=== PATIENT | male | born 1945 ===

== ENCOUNTER 2021-02-24 19:41 | Inpatient (IN) | payer MEDICARE ==
--- NOTE | 2021-02-24 20:15 | NUR ---
NEW ADMIT TO DR ROBLES FROM [facility] RELATED TO ALTERED MENTAL STATUS AND AGGRESSION WITH STAFF. RECEIVED WITH TRANSPORTERS AT HIS SIDE. CALM AND COOPERATIVE UPON ADMIT. SOCIAL WITH STAFF AND PEERS. ADMIT CONSENT RECEIVED VIA PHONE FROM MARLENE PEDERSON. CODE STATUS OF FULL CODE RECEIVED. SECURITY CODE OF 9624 GIVEN. NO SIGNS OF AGGRESSION AT THIS TIME. ORIENTED TO SELF ONLY. SITTING CALMLY IN HALLWAY SOCIALIZING WITH A PEER AT THIS TIME.
[2021-02-24] MEDS ORDERED: BAYER ASPIRIN325 MG PO (21:05)
[2021-02-24] MEDS ORDERED: BUMEX2 MG PO (21:06)
[2021-02-24] MEDS ORDERED: PLAVIX75 MG PO (21:06)
[2021-02-24] MEDS ORDERED: GLIPIZIDE5 MG PO (21:08)
[2021-02-24] MEDS ORDERED: HUMULIN R100 UNIT/1 SC (21:10)
[2021-02-24] MEDS ORDERED: KEPPRA500 MG PO (21:12)
[2021-02-24] MEDS ORDERED: MOBIC7.5 MG PO (21:13)
[2021-02-24] MEDS ORDERED: K-DUR20 MEQ PO (21:14)
[2021-02-24] MEDS ORDERED: OXYBUTYNIN CHLOR5 MG PO (21:14)
[2021-02-24] MEDS ORDERED: REMERON15 MG PO (21:15)
[2021-02-24] MEDS ORDERED: HYTRIN1 MG PO (21:16)
[2021-02-24] MEDS ORDERED: VITAMIN D325 MC1 PO (21:17)
[2021-02-24] MEDS ORDERED: ZOLOFT50 MG PO (21:18)
[2021-02-24 21:42] VITALS: BP 142/82
[2021-02-24 23:29] VITALS: BP 142/82; BMI 26.5
[2021-02-24 23:41] LABS: BILIRUBIN NEGATIVE (NEGATIVE); KETONE NEGATIVE (NEGATIVE); NITRITE NEGATIVE (NEGATIVE); UROBILINOGEN NORMAL mg/dL (< 2)
[2021-02-25 07:32] LABS: BASOPHILS 0.2 % (0-2); EOSINOPHILS 1.4 % (0-7); HEMATOCRIT 41.3 % (36.0-48.0); HEMOGLOBIN 13.6 g/dL (12-16); IMMATURE GRANULOCYTES 0.2 % (0-5); LYMPHOCYTE ABS# 1.61 10x3/uL (1.18-3.74); LYMPHOCYTES 24.2 % (15-50); MCH 28.4 pg (26.0-34.0); MCHC 32.9 g/dL (31.0-37.0); MCV 86.2 fL (80.0-100.0); MEAN PLATELET VOLUME 9.4 fL (7.4-10.4); MONOCYTES 7.5 % (2-11); NEUTROPHIL ABS# 4.42 10x3/uL (1.56-6.13); NEUTROPHILS 66.5 % (40-80); PLATELET COUNT 145 10x3/uL (130-400); RBC 4.79 10x6/uL (4.00-5.40); RDW 14.3 % (11.5-14.5); WBC 6.6 10x3/uL (4.8-10.8)
[2021-02-25 07:52] LABS: ALBUMIN 3.7 g/dL (3.4-5.0); ALKALINE PHOSPHATASE 78 U/L (30-120); ALT (SGPT) 28 U/L (10-68); BILIRUBIN - TOTAL 0.95 mg/dL (0.2-1.3); CALC OSMOLALITY 290 mosm/kg (275-300); CARBON DIOXIDE 33.7 mmol/L (21.0-32.0); CHLORIDE - SERUM 103 mmol/L (98-107); CHOL - HDL RATIO 1.8 ratio (2.3-4.1); CHOLESTEROL, TOTAL 137 mg/dL (0-200); GLUCOSE 144 mg/dL (74-106); HDL CHOLESTEROL 78 mg/dL (32-96); LDL CHOLESTEROL 50 mg/dL (0-100); LDL-HDL RATIO 0.6 ratio (1.5-3.5); POTASSIUM - SERUM 3.4 mmol/L (3.5-5.1); PROTEIN - SERUM 7.3 g/dL (6.4-8.2); SODIUM 143 mmol/L (136-145); THYROID STIMULATING HORMONE 0.95 uIU/mL (0.36-3.74); TRIGLYCERIDE 46 mg/dL (30-200); UREA NITROGEN 21 mg/dL (7-18); eGFR NON AFRICAN AMERICAN 57 mL/min (90-120)
[2021-02-25 09:41] VITALS: Wt 71.6 kg
[2021-02-25 14:19] VITALS: BP 146/72
--- NOTE | 2021-02-25 15:16 | NUR ---
PT SITTING AND TALKING WITH STAFF AT THIS TIME. PT IS CALM AND COOPERATIVE. TALKATIVE AND LABILE. SOME SEXUAL INAPPOPRIATE BEHAVIOR NOTED. REDIRECT AND REORIENT BEHAVIOR NEEDED. NO DELUISIONAL BEHAVIOR NOTED. PT CAN MAKE NEEDS KNOWN. COMPLIANT WITH VITALS AND ASSESSMENTS. PT IN W/C WITH ALARM IN PLACE. PT REPOSITION SELF. BED AND CHAIR ALARM IN PLACE AND ACTIVE. WILL CONT PLAN OF CARE.
--- NOTE | 2021-02-25 18:23 | NUR ---
PT AGGRESSIVE WITH STAFF WHEN STAFF ATTEMPTED ASSIST PT INTO OTHER ROOM. PT BECAME COMBATIVE STATING YOU ARENT TAKING ME ANYWHERE. WHY ARE YOU TRYING TO TAKE ME?" STAFF ATTEMPTED TO REDIRECT. PT DID NOT VERBALIZIE UNDERSTANDING. ATIVAN 0.5 MG AND HALDOL 2 MG IM GIVEN PER DR. ROBLES ORDER. WILL CONT TO MONITOR, FOLLOW FALL PRECAUTIONS. WILL REMONITOR FOR EFFECTIVENESS.
--- NOTE | 2021-02-25 19:58 | NUR ---
RECEIVED IN BEDROOM. RESTING IN BED WITH EYES OPEN. CALM AND COOPERATIVE WITH CARE AND ASSESSMENT. NO SIGNS OF AGGRESSION. REDIRECT AND REORIENT NEEDED. CRITICAL GLUCOSE OF 416. DR IVERSON CALLED. ORDER TO START SLIDING SCALE. NO OTHER ORDERS RECEIVED. STAT LAB GLUCOSE ORDERED PER HOSPITAL POLICY. RESTING IN BED EYES CLOSED. CONTINUE PLAN OF CARE.
[2021-02-25 21:50] VITALS: BP 138/77
[2021-02-26 07:15] LABS: RAPID PLASMA REAGIN Non Reactive (Non Reactive)
--- NOTE | 2021-02-26 08:00 | NUR ---
REC'D PT IN HALLWAY SITTING IN W/C. AWAKE AND ALERT TO PERSON ONLY. ASSESSMENT COMPLETED. PRESCRIBED MEDICATIONS PROVIDED ORDERED. MED COMPLIANT. PT IS ARGUMENTIVE WITH STAFF. PT CAN BECOME VERY AGGRESSIVE WITH STAFF AT TIMES. REDIRECT AND REORIENT NEEDED. FALL PRECAUTIONS IN PLACE. WILL CPOC.
[2021-02-26 09:22] VITALS: BP 150/88
--- NOTE | 2021-02-26 14:39 | NUR ---
Nutrition Follow-up: Diet: Diabetic + Glucerna TID PO intake: no meals recorded since admit Last BM: 02/25/21 x 2 Wt: 169# (02/25/21) Meds noted: bumex, glipizide, SSI, K-dur Labs noted: POC Glu 139(H) Recommend continue current diet and oral nutriiton supplements. WIll continue to monitor PO intake and wt trend. RD will follow-up 03/03/21.
--- NOTE | 2021-02-26 15:03 | CN ---
PATIENT NAME:PRIMITIVO DURAN MEDICAL RECORD: [id number] : 45 LOCATION:[id number] ADMIT DATE: 02/24/21 ACCOUNT: [id number] CONSULTING PHYSICIAN: DAVID ROBLES MD REFERRING PHYSICIAN: DAVID ROBLES MD DATE OF CONSULTATION: 02/25/2021 IDENTIFYING DATA: The patient is 75 years old and he is admitted to the hospital on a voluntary basis. CHIEF COMPLAINT: None. HISTORY OF PRESENT ILLNESS: The patient was referred to us by a group home in [place]. They report he has been aggressive and delusional. The patient himself is severely impaired cognitively and has no recollection of these events. In fact, he is not providing anything I would consider useful information and everything with few exceptions contained in this report is in need of corroboration from other sources. The patient is cooperative and trying to be helpful, but I do not think the reliability of what he is telling me is valid. PAST MEDICAL HISTORY: Significant for hypertension and diabetes. PAST PSYCHIATRIC HISTORY: Denied by the patient. FAMILY HISTORY: Unknown. ALLERGIES: No known drug allergies. CURRENT MEDICATIONS: Plavix, Hytrin, aspirin, Mobic, Remeron, Zoloft, Keppra, Bumex, potassium, glipizide, insulin and vitamin D. SOCIAL HISTORY: The patient is . He denies a history of drug or alcohol abuse. He denies legal entanglements. MENTAL STATUS EXAMINATION: The patient is awake, alert and oriented to person only. His mood is depressed. His affect is constricted. Thought processes are circumstantial. Memory, concentration, and abstraction abilities are severely impaired and he denies that he would seek to harm himself or others as well as active psychotic symptoms. ASSETS: Supportive family members. LIABILITIES: Limited insight. 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 AXIS II: None. AXIS III: Hypertension, diabetes. AXIS IV: Moderate stressors. AXIS V: Global Assessment of functioning is 30. PLAN: At this time, the patient is admitted to the hospital secondary to aggressive behaviors associated with a dementing illness. He will be treated with both mood stabilizing and memory enhancing medications. His long-term CONSULT REPORT [id number] PRIMITIVO DURAN prognosis is guarded. TRANSINT:[id number] Voice Confirmation ID: [id number] DOCUMENT ID: [id number] DAVID ROBLES MD at 1503 CC: [id number] DICTATION DATE: 02/25/21 171 HANDBAG DESIGNER: 02/25/21 1725 ADM IN [place] [id number] [place] [id number]
[2021-02-26 20:00] VITALS: BP 127/81
--- NOTE | 2021-02-26 23:10 | NUR ---
PT IS ALERT AND ORIENTED TO SELF ONLY. WHEN ASKED WHERE HE IS HE STATED "HERE WITH YOU, I DONT KNOW." RECEIVED OUTSIDE THE NURSES STATION IN A WHEELCHAIR SOCIALIZING WITH PEERS. CALM AND COOPERATIVE WITH STAFF. COMPLIANT WITH ALL MEDICATIONS. EASY TO REDIRECT. UNSTEADY WHEN AMBULATING. MONITOR FOR SAFETY.
--- NOTE | 2021-02-27 03:21 | NUR ---
PT RESTLESS AT TIMES, RELATES THAT HE NEEDS TO GO TO THE POLICE STATION TOMORROW BUT IS UNABLE TO TELL ME WHY. MONITOR FOR SAFETY.
[2021-02-27 09:58] VITALS: BP 135/72
--- NOTE | 2021-02-27 11:38 | PN ---
PATIENT:PRIMITIVO DURAN MEDICAL RECORD: [id number] LOCATION:[facility] ADMISSION DATE: 02/24/21 PROGRESS NOTE DATE OF SERVICE: 02/26/2021 SUBJECTIVE: The patient's case was discussed with staff. He has no new complaint. OBJECTIVE: The patient has been disorganized and was significantly agitated last night, but he is better today. In fairness, he is a new admission and there was another patient that was very much out of control and I believe from the description that I heard that the other patient was actually escalating him. ASSESSMENT: Dementia. PLAN: The patient will be maintained on current medicines, which I have reviewed. His long-term prognosis is guarded. TRANSINT:[id number] Voice Confirmation ID: [id number] DOCUMENT ID: [id number] DAVID ROBLES MD at 1138 CC: [id number] DICTATION DATE: 02/26/21 1520 RAW HIDE TRIMMER: 02/26/21 1702 ADM IN [place] [id number] [place] [address]
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
--- NOTE | 2021-02-27 15:49 | NUR ---
PT CALM AND COOPERATIVE. PRN EFFECTIVE.
--- NOTE | 2021-02-27 16:14 | NUR ---
PT SITTING IN DAYAREA WITH STAFF SOCIALZING. PT IS CALM AND COOPERATIVE. CONFUSION NOTED. ALERT TO SELF ONLY. REDIRECT AND REORIENT NEEDED. PT CAN MAKE SOME NEEDS KNOWN. REQUIRES SOME ASSISTANCE WITH ADLS. CAN TRANSFER SELF. NO AGRESSION NOTED. PT WAS TEARFUL EARLIER WHEN ANOTHER PT WAS UPSET AND CRYING. ATIVAN 0.5 MG PO FOR ANXIETY. PT CAN BE RESTLESS AT TIMES. PT IS COMPLIANT WITH MEDS, VITALS AND ASSESSMENTS. CHAIR AND BED ALARM IN PLACE AND ACTIVE.
[2021-02-27 20:00] VITALS: BP 147/93
--- NOTE | 2021-02-27 20:42 | NUR ---
RECEIVED PATIENT IN HIS ROOM, PLEASANT, CONFUSED, COMPLIANT WITH MEDS, THEN HE GOT UP AND ROLLED HIMSELF AROUND IN THE WHEELCHAIR, SEEM TO BE EXIT SEEKING. NO AGGRESSION NOTED. WILL FOLLOW POC
--- NOTE | 2021-02-27 23:38 | NUR ---
PATIENT WAS GIVEN HALDOL AND ATIVAN IM @ 2245 FOR AGGRESSION TOWARD STAFF AND BEING HARD TO REDIRECT. PRN WAS EFFECTIVE.
[2021-02-28 08:30] VITALS: BP 129/87
[2021-02-28 09:27] VITALS: BP 129/87
--- NOTE | 2021-02-28 10:15 | NUR ---
PT SITTING IN W/C IN DAYAREA AT THIS TIME. PT IS CALM AND COOPERATIVE WITH CARE AT TIMES. ALERT TO SELF ONLY. CONFUSION NOTED. PT CAN BE DIFFCULT TO REDIRECT AT TIMES. PT REQUIRES SOME ASSISTANCE WITH ADLS. CAN TRANSFER SELF. CAN NOT MAKE NEEDS KNOWN. ENCOURAGE TOILETING Q 2 HRS AND PRN. REDIRECT AND REORIENT NEEDED. COMPLIANT WITH MEDS, VITALS AND ASSESSMENTS. CHAIR AND BED ALARM IN PLACE AND ACTIVE. WILL CONT PLAN OF CARE.
[2021-02-28 20:00] VITALS: BP 119/77
--- NOTE | 2021-02-28 20:02 | NUR ---
PT IS ALERT AND ORIENTED TO SELF ONLY. POOR INSIGHT INTO HIS SITUATION. RECEIVED IN A WHEELCHAIR IN THE HALLWAY OUTSIDE THE NURSES STATION. CALM AND COOPERATIVE WITH STAFF. COMPLIANT WITH ALL MEDICATIONS. EASY TO REDIRECT. MONITOR FOR SAFETY.
[2021-03-01 08:00] VITALS: BP 134/78
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
[2021-03-01 20:00] VITALS: BP 138/63
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
[2021-03-02 08:00] VITALS: BP 142/71
--- NOTE | 2021-03-02 08:00 | NUR ---
REC'D PT IN HALLWAY SITTING IN W/C BY THE NURSES STATION. ASSESSMENT COMPLETED AT THIS TIME. AWAKE AND ALERT TO PERSON ONLY. PRESCRIBED MEDS PROVIDED ORDERED. MED COMPLIANT. PT IS VERY CONFUSED AND HAS LITTLE INSIGHT INTO HIS SITUATION. PT CAN BECOME AGGRESSIVE WITH STAFF AT TIMES UPON REDIRECTION. PT HAS BEEN SEXUALLY INAPPROPRIATE WITH STAFF AT TIMES. REDIRECT AND REORIENT NEEDED, FALL PRECAUTIONS IN PLACE FOR SAFETY. WILL CPOC.
--- NOTE | 2021-03-02 17:25 | NUR ---
PT EXIT SEEKING AT THIS TIME. PT AT DOUBLE DOORS ATTEMPTING TO LEAVE UNIT. PT REDIRECTED PER STAFF. UPON REDIRECTION PT PUT SELF IN THE FLOOR AND REFUSED TO GET UP AT THIS TIME. PT REFUSED BLOOD SUGAR AND TRAY AT THIS AT THIS TIME. HOWEVER ABOUT 40 MINUTES LATER PT ATE 100% OF DINNER. WILL CPOC.
--- NOTE | 2021-03-02 19:57 | NUR ---
RECEIVED IN BEDROOM. RESTING IN BED WITH EYES OPEN. EXITS BED WITHOUT ASSIST. IVETT ALARM SOUNDING. CALM AND CCOPERATIVE WITH CARE AND ASSESSMENT. NO SIGNS OF AGGRESSION. REDIRECT AND REORIENT NEEDED. CONTINUES TO REST IN BED WITH EYES OPEN. CONTINUE PLAN OF CARE.
[2021-03-02 21:12] VITALS: BP 131/79
[2021-03-03 08:00] VITALS: BP 142/91
--- NOTE | 2021-03-03 09:15 | NUR ---
PATIENT AGGRESSIVE AND AGITATED. HITTING, BITING, SCRATCHING STAFF. UNABLE TO RE-DIRECT.
--- NOTE | 2021-03-03 09:19 | NUR ---
PATIENT CONTINUES TO EXPERIENCE ANXIETY AND AGGRESSION TOWARD STAFF. ATIVAN 0.5 MG AND HALDOL 2 MG ADMIN IM PER ORDERS. NITHYA WELL.
--- NOTE | 2021-03-03 10:48 | NUR ---
Nutrition Follow-up: Diet: Diabetic + Glucerna TID PO intake: ~87% average x last 9 meals Last BM: 03/03/21 Wt: 168# (03/02/21); Admit Wt: 169# (02/24/21) Meds noted: bumex, glipizide, SSI, kdur Labs noted: POC Glu 143(H) Recommend continue current diet. RD will re-assess 03/05/21.
--- NOTE | 2021-03-03 11:04 | NUR ---
PATIENT CHEWED MEDS AT MORNING MED PASS AND SPIT SOME OUT.
--- NOTE | 2021-03-03 15:16 | PN ---
PATIENT:PRIMITIVO DURAN MEDICAL RECORD: [id number] LOCATION:[facility] ADMISSION DATE: 02/24/21 PROGRESS NOTE DATE OF SERVICE: 02/27/2021 SUBJECTIVE: The patient's case was discussed with staff. He has no new complaint. OBJECTIVE: The patient denies intent to harm himself or others. He is participating in treatment reasonably well. He did have some agitation recently, but it has not risen today to the level of needing p.r.n. medications. I would not interpret this as an improvement in his underlying condition, but rather I would attribute it to the supportive nature of his surroundings with someone constantly available to guide and redirect him. There would not be this advantage in a penitentiary. TRANSINT:[id number] Voice Confirmation ID: [id number] DOCUMENT ID: [id number] DAVID ROBLES MD at 1516 CC: [id number] DICTATION DATE: 02/27/21 1626 PROPERTY UNDERWRITER: 02/27/21 1803 ADM IN [facility] [address] [place] [address]
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
--- NOTE | 2021-03-03 20:49 | NUR ---
RECEIVED IN DAYROOM. COMABTIVE WITH STAFF. MOVED TO NURSES STAION FOR SAFETY. PATIENT CURSING STAFF. AGITATED. CALMED AFTER GIVEN PRN.REDIRECT AND REORIENT NEEDED. RESTING QUIETLY IN BED WITH EYES CLOSED AT THIS TIME. CONTINUE PLAN OF CARE.
[2021-03-03 20:59] VITALS: BP 130/73
[2021-03-04 08:00] VITALS: BP 146/69
--- NOTE | 2021-03-04 15:33 | NUR ---
RECEIVED THIS AM SITTING IN WHEELCHAIR IN HALLWAY AT NURSES STATION.IS ORIENTED TO SELF ONLY.COMPLIANT WITH MEDS.IS DIFFICULT TO REDIRECT AT TIMES.HAS BANDAID TO FOREHEAD,CLEAN AND DRY.NO AGGRESSION OBSERVED TODAY.WILL CONTINUE WITH CURRENT PLAN OF CARE,MONITOR FOR CHANGES AND SAFETY.
--- NOTE | 2021-03-04 15:49 | PN ---
PATIENT:PRIMITIVO DURAN MEDICAL RECORD: [id number] LOCATION:[facility]112 ADMISSION DATE: 02/24/21 PROGRESS NOTE DATE OF SERVICE: 03/03/2021 SUBJECTIVE: The patient's case was discussed with staff. He has no new complaint. OBJECTIVE: The patient is eating well, but he is very disorganized and delusional. He has been aggressive with staff in a very threatening way and required p.r.n. medication today. This weekend, he again engaged in a great deal of attention seeking help rejecting behavior and he has also been vulgar with numerous profane comments and requests being made to women. ASSESSMENT: Vascular dementia. PLAN: I am going to treat the patient more aggressively with antipsychotic medication and will include more significant p.r.n. medication since he is actually quite strong and a potential danger to the nursing staff and other patients. TRANSINT:[id number] Voice Confirmation ID: [id number] DOCUMENT ID: [id number] DAVID ROBLES MD at 1549 CC: [id number] DICTATION DATE: 03/03/21 1639 LUBRICATING ENGINEER: 03/03/21 2300 ADM IN [facility] [address] [place] [address]
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
--- NOTE | 2021-03-04 20:23 | NUR ---
RECEIVED IN DAYROOM. SITTING AT THE TABLE WITH PEERS. CALM AND COOPERATIVE WITH CARE AND ASSESSMENT. CONFUSED. NO SIGNS OF AGGRESSION. REDIRECT AND REORIENT NEEDED. CONTINUES TO SIT CALMLY AT THE DINING TABLE. CONTINUE PLAN OF CARE.
[2021-03-04 20:30] VITALS: BP 112/73
[2021-03-05 08:00] VITALS: BP 131/74
--- NOTE | 2021-03-05 10:10 | NUR ---
Nutrition Re-Assessment Diet: Diabetic + Glucerna TID PO intake: ~86% average x last 9 meals Last BM: 03/04/21 Wt: 168# (03/02/21); Admit Wt: 169# (02/24/21) Meds noted: bumex, glipizide, SSI, kdur Labs noted: POG Glu 191(H) Estimated nutrition needs: [id number] marsha (20-25 Act), 62-77gms protein (0.8-1), 1925-2300mL fluid (or per MD) Nutrition diagnosis: Altered nutrition related lab values r/t DM dx AEB elevated blood glucose. Nutrition goals: -PO intake =/>75% meals -Stable weight -Blood glucose WNL Recommendations/Interventions: -Recommend continue current diet and oral nutrition supplements. Will continue to honor food preferences within diet restrictions. -RD will follow-up within 7 days.
--- NOTE | 2021-03-05 13:06 | NUR ---
STAFF CALLED PT WAS CHOKING AT THIS TIME. 2X NURSE. PT WAS ALERT AND SPEAKING TO STAFF. VOMIT NOTED WITH CHUNKS OF FOOD. PT WAS DRINKING THIN TEA AT THE TIME. T: 98.6 ORAL, BILATERAL LUNG SOUNDS DIMINISHED. NURSE NOTIFIED DR. IVERSON. NEW ORDER: SPEECH THERAPY AND STAT CHEST X-RAY. ORDERS IN COMPUTER. PT REDRESSED AND CLEANED AT THIS TIME.
--- NOTE | 2021-03-05 17:10 | NUR ---
PT SITTING IN CHAIR AT THIS TIME. CONFUSION NOTED. REDIRECT AND REORIENT NEEDED. PT IS ALERT TO PERSON ONLY. REDIRECT AND REORIENT NEEDED. RESTLESS AT TIMES. PT IS SEXUAL INAPPOPRIATE AT TIMES. REDIRECT NEEDED. LACKS INSIGHT TO SITUATION. CAN NOT MAKE NEEDS KNOWN. COOPERATIVE WITH MEDS, VITALS AND ASSESSMENTS. PT COOPERATIVE WITH FSBS. REQUIRES 2X ASSISTANCE WITH ADLS. CHAIR AND BED ALARM IN PLACE AND ACTIVE. WILL CONT PLAN OF CARE.
--- NOTE | 2021-03-05 18:04 | NUR ---
Rec'd patient this am up in a reclining w/c. He is med compliant and takes meds whole. He is A/O times 2 to person and situation. He became aggressive and combative earliar with staff and the other patients and was lifting his voice at them. He was becoming increasingly combative. He is restless. He has been cooperative with this nurse. He was not being able to be directable and per MD orders rec'd Haldol and Ativan IM given.
[2021-03-05 20:00] VITALS: BP 137/83
--- NOTE | 2021-03-05 23:16 | NUR ---
RECEIVED PATIENT IN [facility] IN [facility], CALM, HE SPEAKS ABOUT RANDOM THINGS AND IT IS HARD TO UNDERSTAND HIM DUE TO HIS CONFUSION AND THE LANGUAGE BARRIER. COMPLIANT WITH MEDS. WILL FOLLOW POC
[2021-03-06 08:00] VITALS: BP 146/90
--- NOTE | 2021-03-06 11:16 | PN ---
PATIENT:PRIMITIVO DURAN MEDICAL RECORD: [id number] LOCATION:RACHEL Gallardo ADMISSION DATE: 02/24/21 PROGRESS NOTE DATE OF SERVICE: 03/04/2021 SUBJECTIVE: The patient's case was discussed with staff. He has no new complaint. OBJECTIVE: The patient denies intent to harm himself or others. He is calmer today, but as documented yesterday, he was extremely violent in a premedicated and predatory way. ASSESSMENT: Vascular dementia. PLAN: The patient will be maintained on current medicines, but I am going to increase the dose of his gabapentin. He will be monitored for clinical changes associated with its use. TRANSINT:[id number] Voice Confirmation ID: [id number] DOCUMENT ID: [id number] DAVID ROBLES MD at 1116 CC: [id number] DICTATION DATE: 03/04/21 1653 CABIN SERVICE AGENT: 03/04/21 2329 ADM IN [place] [id number] [place] [id number]
--- NOTE | 2021-03-06 11:16 | EC ---
PATIENT:PRIMITIVO DURAN DATE OF SERVICE: 02/24/21 SEX: M MEDICAL RECORD: [id number] DATE OF : 45 LOCATION:[facility] TorresJose AGE OF PATIENT: 75 ADMISSION DATE: 02/24/21 REFERRING PHYSICIAN: INTERPRETING PHYSICIAN: DAVID ROBLES MD ECHOCARDIOGRAM REPORT ECHO CHARGES Date: CLINICAL DIAGNOSIS: ECHOCARDIOGRAPHIC MEASUREMENTS (adult normal given) AC root (d.<3.7cm) cm LV Septum d (<1.2 cm> cm Valve Excursion cm LV Septum (systole) cm Left Atria (s.<4.0cm> cm LVPW d(<1.2cm) cm RV (d.<2.3cm) cm LVPW (sytole) cm LV diastole(<5.6CM) cm MV E-F(>70mm/sec) cm LV systole cm LVOT Diameter cm MV exc.(>10mm) cm Est.ejection fraction (50-75%) % DOPPLER: LVIT cm/sec A cm/sec E cm/sec LA cm/sec RVSP mmHg LVOT cm/sec AOP1/2T m/s Asc. Ao cm/sec RVOT cm/sec RA cm/sec PA cm/sec AV Gradient Peak mmHg AV Mean mmHg AV Area cm MV Gradient Peak mmHg MV Mean mmHg MV Area cm COMMENTS: Bag Worker: Expense Analyst: LUNA# Pericardial Effusion DATE OF SERVICE: 03/05/2021 SUBJECTIVE: The patient's case was discussed with staff. He has no new complaint. OBJECTIVE: The patient is confused and easily agitated. He has very poor insight about his situation and denies that he would seek to harm himself or others. ASSESSMENT: Dementia. ECHOCARDIOGRAM REPORT [id number] PRIMITIVO DURAN PLAN: The patient will be treated with a low dose of Klonopin to address his agitation. He will be monitored for clinical changes associated with its use. TRANSINT:[id number] Voice Confirmation ID: [id number] DOCUMENT ID: [id number] DAVID ROBLES MD at 1116 CC: [id number] DICTATION DATE: 03/05/21 1643 PARKING SUPERVISOR: 03/06/21 0037 ADM IN [address], [place] [address]
--- NOTE | 2021-03-06 16:56 | NUR ---
pt sitting in gerichair socializing with pt at this time. pt is calm and cooperative. pt is confused. alert to self only. redirect and reorient as needed. no aggression noted at this time. pt requires 2x assistance with ADLs. total assist. sexual inappopriate at times. redirect. bed and chair alarm in place and active. will cont plan of care.
[2021-03-06 20:00] VITALS: BP 163/91
--- NOTE | 2021-03-07 00:37 | NUR ---
B) Patient is alert and oriented to self, grabbing at other patients as they pass by his chair, aggression with redirection from staff, trying to hit staff I) Administered scheduled medications as ordered, redirected as needed, PRN Ativan 0.5 mg and haldol 2 mg given IM for aggression with staff, R) Medication compliant, sleeping now quietly in his bed, P) Continue plan of care.
[2021-03-07 08:00] VITALS: BP 140/72
--- NOTE | 2021-03-07 10:30 | NUR ---
PT DAUGHTER CALLED AT THIS TIME. PASSCODE GIVEN. SHE INQUIRED ABOUT HOW THE PT WAS DOING AT THIS TIME AND SHE WANTED TO KNOW IF SHE COULD CALL THIS AFTERNOON. PT DID NOT WANT TO SPEAK WITH HER EARLIER THIS WEEK. NURSE GAVE UPDATE ON HOW HE WAS DOING. PT WAS IN A GOOD MOOD THIS SHIFT BUT PT DID NEED MEDICATIONS ON PREVIOUS SHIFT DUE TO AGGRESSIVE BEHAVIOR. SHE STATED THAT THIS WAS NOT HER DAD. HE DIDNT NOT WANT TO TALK TO HER AND HE HASN'T BEEN DOING WELL. SHE INQUIRED ABOUT VISITATION TIMES. NURSE EDUCATED ON VISITATION TIMES. SHE STATED IF SHE WAS GOING TO VISIT THEN SHE CALL FOR DIRECTIONS. SHE THANKED NURSE.
--- NOTE | 2021-03-07 15:13 | NUR ---
pt sitting in chair rambling and reaching for staff. confused. can be aggressive with redirection. very anxious and restless. alert to self only. lacks insight to situation. sexual inappopriate behavior noted. redirected. compliant with meds, vitals and assessments. pt can not make needs known. pericare q 2hr and prn. will cont plan of care.
--- NOTE | 2021-03-07 16:44 | NUR ---
NURSE REPORTED TO DR. IVERSON THAT PT LUNG SOUNDS WERE DIFFERENT AND PT BEING MORE CONFUSED AND INCREASED BLOOD SUGARS. NEW ORDER FOR: CHEST X-RAY, URINE SAMPLE AND CBC. WILL FOLLOW UP RESULTS WITH DR. IVERSON. BLOOD DRAWN AT THIS TIME PER LAB.
[2021-03-07 16:52] LABS: BASOPHILS 0.3 % (0-2); HEMATOCRIT 43.2 % (42.0-54.0); HEMOGLOBIN 14.3 g/dL (13.5-17.5); IMMATURE GRANULOCYTES 0.2 % (0-5); LYMPHOCYTE ABS# 1.61 10x3/uL (1.32-3.57); LYMPHOCYTES 27.4 % (15-50); MCH 28.9 pg (26.0-34.0); MCHC 33.1 g/dL (31.0-37.0); MCV 87.3 fL (80.0-100.0); MEAN PLATELET VOLUME 9.8 fL (7.4-10.4); NEUTROPHIL ABS# 3.64 10x3/uL (1.78-5.38); NEUTROPHILS 62.1 % (40-80); PLATELET COUNT 162 10x3/uL (130-400); RBC 4.95 10x6/uL (4.20-6.10); RDW 14.6 % (11.5-14.5); WBC 5.9 10x3/uL (4.8-10.8)
--- NOTE | 2021-03-07 18:14 | NUR ---
PT DAUGHTER CALLED TO SPEAK WITH PT AT THIS TIME. PASSCODE GIVEN. CONVERSION TOLERATED WELL.
--- NOTE | 2021-03-07 18:15 | NUR ---
X-RAY HERE AT THIS TIME. PT TOLERATED WELL. PT WAS CALM AND COOPERATIVE WITH STAFF.
[2021-03-07 20:00] VITALS: BP 145/80
--- NOTE | 2021-03-07 21:20 | NUR ---
PT IS ALERT AND ORIENTED TO SELF ONLY. RECEIVED IN BED ATTENDING TO VISUAL HALLUCINATIONS OF MEN IN HIS ROOM. HE STATES "WATCH YOUR BACK THOSE MEN ARE COMING CLOSER." ATTEMPT TO REDIRECT UNSUCCESSFUL. NO AGGRESSION NOTED. RESTLESS AND ATTEMPTS TO GET OUT OF BED WITHOUT ASSIST. VERY UNSTEADY ON HIS FEET. COMPLIANT WITH ALL MEDICATIONS. RESISTANT TO REDIRECTION AT TIMES. MONITOR FOR SAFETY.
[2021-03-08 08:58] VITALS: BP 114/88
--- NOTE | 2021-03-08 11:02 | NUR ---
PT IN ROOM AT THIS TIME. PT IS RESTLESS. CONFUSION NOTED. ALERT TO SELF ONLY. REDIRECT AND REORIENT NEEDED. PT NOT SEEING UNSEEN THINGS. PT CONTS TO ATTEMPT TO STAND. PT REQUIRES CONSTANT REDIRECTION. CONTS WITH WORD SALAD. CAN NOT MAKE NEEDS KNOWN. COMPLIANT WITH MEDS, VITALS AND ASSESSMENTS. BED AND CHAIR ALARM IN PLACE AND ACTIVE. WILL CONT OF CARE.
--- NOTE | 2021-03-08 17:38 | NUR ---
DR. IVERSON CALLED SHE REVIEWED THE CHEST X-RAY RESULTS FROM 03/07/21 AND VITALS SIGNS ARE NORMAL. NEW ORDER FOR INCENTIVE SPIROMETER 4X IN A DAY. WILL PASS TO NEXT SHIFT WELL.
--- NOTE | 2021-03-08 17:39 | NUR ---
PT DAUGHTER CAME TO VISIT AT THIS TIME. SHE WANTED TO KNOW HOW HE WAS DOING AND WHY HE WAS SLEEPY AT THIS TIME. NURSE WENT OVER REASONS TO WHY. HE WAS COMBATIVE WITH STAFF ON THE ACTIVITY SPECIALIST WELL. THIS IS THE MEDICATION THAT IS PER NEEDED THAT MAKE HIM SLEEPY. WE DONT USE THOSE MEDICATIONS ROUTINE SO BEFORE HE GOES BACK TO THE LONG-TERM HE CAN NOT HAVE THOSE MEDICATIONS. 3 DAYS AND 3 NIGHTS HE CAN NOT HAVE THOSE MEDICATIONS. SHE VOICED UNDERSTANDING AND ASKED IF IT WAS DISEASE PROGRESSION AND HOW LONG IT WOULD BE BEFORE THEY . NURSE STATED DISEASE PROGRESSION IS DIFFERENT WITH EVERY PATIENT AND NURSE COULD NOT ANSWER THAT QUESTION. SHE VERBALIZIED UNDERSTANDING BUT DID NOT UNDERSTAND HOW IT COULD HAPPEN SO QUICKLY. NURSE STATED DISEASE PROGRESSION WAS DIFFERENT FOR EVERYONE. WE DID OBTAIN LABS AND CHEST X-RAY SO MONITOR IF ANYTHING HAPPENS. SHE DID NOT UNDERSTAND IF ITS NOTHING WRONG WITH HIM PHYSICALLY THEN WHAT WAS WRONG?" NURSE STATED IT COULD BE DISEASE PROGRESSION. HE STILL HAVE THE DESIRE TO EAT AND DRINK. SHE STATED SHE WOULD COME SEE HIM NEXT WEEKEND BUT THAT HER MOTHER ISNT DOING WELL EITHER SO SHE IS HAVING A HARD TIME. NURSE VERBALIZIED UNDERSTANDING. SHE THANKED NURSE FOR ALL THE HELP.
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
[2021-03-08 21:23] VITALS: BP 154/86
--- NOTE | 2021-03-08 23:03 | NUR ---
PT IS ALERT AND ORIENTED TO SELF ONLY. POOR INSIGHT INTO HIS SITUATION. HE IS RESTLESS AND VERY UNSTEADY. ATTEMPTS TO GET OUT OF BED WITHOUT ASSIST. COOPERATIVE. EASY TO REDIRECT BUT REQUIRES CONSTANT REDIRECTION. BED ALARM ON AND WORKING. MONITOR FOR SAFETY.
[2021-03-09 08:00] VITALS: BP 133/71
--- NOTE | 2021-03-09 11:40 | NUR ---
PATIENT OBSERVED EXPERIENCING AUDITORY HALLUCINATIONS, SPEAKING TO UNSEEN PERSON.
--- NOTE | 2021-03-09 12:58 | NUR ---
ALERT, CALM, COOPERATIVE. CONVERSES WITH UNSEEN PERSONS AT TIMES, OFTEN TALKING ABOUT A "KILLER". NO AGGRESSION NOTED THUS FAR THIS SHIFT. MEDS ADMIN PER ORDERS WITH COMPLETE MED COMPLIANCE NOTED. NO ADVERSE REACTION NOTED. CONTINUE PLAN OF CARE.
--- NOTE | 2021-03-09 14:58 | NUR ---
SHOWER WAS GIVEN PER PCT. NITHYA WELL.
--- NOTE | 2021-03-09 16:13 | NUR ---
PATIENT SPEAKING OCCITAN TO UNSEEN INDIVIDUALS.
--- NOTE | 2021-03-09 16:40 | NUR ---
PATIENT AGGRESSIVE WITH MED NURSE AND PCT. ATIVAN 2 MG AND HALDOL 2 MG IM LEFT DORSOGLUTEAL. NITHYA WELL.
--- NOTE | 2021-03-09 19:59 | NUR ---
RECEIVED IN HALLWAY OUTSIDE OF NURSES STATION IN A RECLING CHAIR. RESTLESS AT TIMES. CALM AND COOPERATIVE WITH CARE AND ASSESSMENT. NO SIGNS OF AGGRESSION. REDIRECT AND REORIENT NEEDED. CONTINUES TO SIT IN HALLWAY OUTSIDE OF NURSES STATION. CONTINUE PLAN OF CARE.
[2021-03-09 21:50] VITALS: BP 138/86
[2021-03-10 08:00] VITALS: BP 133/78
--- NOTE | 2021-03-10 08:00 | NUR ---
REC'D PT IN HALLWAY SITTING IN W/C. AWAKE AND ALERT TO PERSON ONLY. ASSESSMENT COMPLETED. PT BECAME VERY AGGRESSIVE WITH STAFF AT 0700 THIS MORNING. UNABLE TO REDIRECT AT THIS TIME. PT YELLING, CUSSING, AND COMBATIVE WITH STAFF. PRN HALDOL 2MG IM AND ATIVAN 2MG IM GIVEN PER PRN ORDER. REDIRECT AND REORIENT NEEDED. PRESCRIBED MEDS PROVIDED ORDERED. MED COMPLIANT. FALL PRECAUTIONS IN PLACE. WILL CPOC.
--- NOTE | 2021-03-10 14:40 | PN ---
PATIENT:PRIMITIVO DURAN MEDICAL RECORD: [id number] LOCATION:[facility] ADMISSION DATE: 02/24/21 PROGRESS NOTE DATE OF SERVICE: 03/06/2021 SUBJECTIVE: The patient's case was discussed with staff. OBJECTIVE: The patient denies intent to harm himself or others. He does tolerate his medicines well. He is much more cooperative today and is not sedated. ASSESSMENT: Vascular dementia. PLAN: Current medicines have been reviewed and will be maintained. Long-term prognosis is guarded. TRANSINT:[id number] Voice Confirmation ID: [id number] DOCUMENT ID: [id number] DAVID ROBLES MD at 1440 CC: [id number] DICTATION DATE: 03/06/21 1605 EDUCATION PROGRAM SPECIALIST: 03/06/212002 ADM IN [facility] [address] [place] [address]
[2021-03-10 17:57] LABS: CARBON DIOXIDE 31.7 mmol/L (21.0-32.0); CREATININE - SERUM 1.1 mg/dL (0.6-1.3); POTASSIUM - SERUM 3.7 mmol/L (3.5-5.1)
--- NOTE | 2021-03-10 20:07 | NUR ---
RECEIVED IN DAYROOM. SITTING IN A RECLINER AT THE TABLE. VERY CONFUSED. RESTLESS AT TIMES. CALM AND COOPERATIVE WITH CARE AND ASSESSMENT. NO SIGNS OF AGGRESSION. REDIRECT AND REORIENT NEEDED. CONTINUES TO SIT IN DAYROOM. CONTINUE PLAN OF CARE.
[2021-03-10 20:17] VITALS: BP 128/72
--- NOTE | 2021-03-11 07:55 | NUR ---
REC'D PT IN HALLWAY SITTING IN W/C BY THE NURSES STATION. AWAKE AND ALERT TO PERSON ONLY. CALM AND COOPERATIVE WITH ASSESSMENT AT THIS TIME. PT TAKING TO UNSEEN OTHERS AT THIS TIME. REDIRECT AND REORIENT NEEDED. PT IS RESTLESS AND REQUIRES CONSTANT REDIRECTION PER STAFF. PRESCRIBED MEDS PROVIDED PER STAFF ORDERED. MED COMPLIANT. FALL PRECAUTIONS IN PLACE. WILL CPOC.
[2021-03-11 08:00] VITALS: BP 124/67
--- NOTE | 2021-03-11 15:20 | PN ---
PATIENT:PRIMITIVO DURAN MEDICAL RECORD: [id number] LOCATION:[facility] ADMISSION DATE: 02/24/21 PROGRESS NOTE DATE OF SERVICE: 03/10/2021 SUBJECTIVE: The patient's case was discussed with staff. He has no new complaint. OBJECTIVE: The patient is eating and sleeping reasonably well, but is quite confused and restless at times. ASSESSMENT: Vascular dementia. PLAN: We will check a set of labs and will review medications and continue them. TRANSINT:[id number] Voice Confirmation ID: [id number] DOCUMENT ID: [id number] DAVID ROBLES MD at 1520 CC: [id number] DICTATION DATE: 03/10/21 1618 ENERGY PROJECT ENGINEER: 03/10/21 2357 ADM IN [facility] [id number] [place] [address]
[2021-03-11 19:58] VITALS: BP 125/76
--- NOTE | 2021-03-11 20:10 | NUR ---
RECEIVED IN DAYROOM. SITTING IN A RECLINER AT THE TABLE. CALM AND COOPERATIVE WITH CARE AND ASSESSMENT. NO SIGNS OF AGGRESSION. REDIRECT AND REORIENT NEEDED. CONTINUES TO SIT CALMLY AT TABLE. CONTINUE PLAN OF CARE.
--- NOTE | 2021-03-12 07:45 | NUR ---
REC'D IN BED ATTEMPTING TO GET OUT OF BED UNASSISTED. PT DRESSED AND TRANSFER TO RECLINING CHAIR PER STAFF. ASSESSMENT COMPLETED. AWAKE AND ALERT TO PERSON ONLY. PT CAN BECOME AGGRESSIVE WITH STAFF UPON REDIRECTION. HOWEVER, WHILE PT WAS SITTING IN RECLINING CHAIR BY THE NURSES STATION. PT STATED " TO MHT I AM GOING TO MAKE YOU WORK TODAY." PT DECIDED TO SIT HISSELF IN THE FLOOR BY THE NURSES STATION AND REFUSED TO GET UP AT THIS TIME. PT ASSISTED UP PER STAFF X 2 TO RECLINING CHAIR. PT TOOK TO DINING ROOM TO HAVE BREAKFAST WITH PEERS AT THIS TIME. PRESCRIBED MEDS PROVIDED ORDERED. MED COMPLIANT. REDIRECT AND REORIENT NEEDED. PT IS SEXUALLY INAPPROPRIATE WITH STAFF DURING SHIFT. FALL PRECAUTIONS IN PLACE FOR SAFETY. WILL CPOC.
[2021-03-12 08:00] VITALS: BP 128/78
--- NOTE | 2021-03-12 09:47 | PN ---
PATIENT:PRIMITIVO DURAN MEDICAL RECORD: [id number] LOCATION:[facility] ADMISSION DATE: 02/24/21 PROGRESS NOTE DATE OF SERVICE: 03/11/2021 SUBJECTIVE: The patient's case was discussed with staff. He has no new complaint. OBJECTIVE: The patient is limited in his insight. He is only oriented to person. He has been confused and somewhat labile, but not openly or directly aggressive in some way that would represent a danger to others. ASSESSMENT: Vascular dementia. PLAN: Current medicines have been reviewed. I am going to increase the dose of his Namenda. TRANSINT:[id number] Voice Confirmation ID: [id number] DOCUMENT ID: [id number] DAVID ROBLES MD at 0947 CC: [id number] DICTATION DATE: 03/11/21 163 RELIEF MATE: 03/11/21 3888 ADM IN [facility] [address] [place] [address]
--- NOTE | 2021-03-12 09:50 | NUR ---
Nutrition Re-Assessment Diet: Diabetic + Glucerna TID PO intake: ~73% average x last 9 meals Last BM: 03/11/21 Wt: 165# (03/09/21); Admit Wt: 169# (02/24/21) Meds noted: glipizide, bumex, SSI, kdur Labs noted: POC Glu 115(H) Estimated nutrition needs: 1320-9149 marsha (20-25 Act), 62-77gms protein (0.8-1), 1925-2300mL fluid (or per MD) Nutrition diagnosis: Altered nutrition related lab values r/t DM dx AEB elevated blood glucose. Nutrition goals: -PO intake =/>75% meals -Meet fluid needs -Stable weight -Blood glucose to trend WNL Recommendations/Interventions: -Recommend continue current diet and oral nutrition supplements. -Will continue to honor food preferences within diet restrictions. -RD will follow-up within 7 days.
[2021-03-12 20:00] VITALS: BP 118/70
--- NOTE | 2021-03-12 21:30 | NUR ---
PT IS ALERT AND ORIENTED TO SELF. HE IS RESTLESS AND DOES REQUIRE CONSTANT REDIRECTION. COMPLIANT WITH ALL MEDICATIONS. RESISTANT TO REDIRECTION AT TIMES. VERY UNSTEADY AMBULATES WITH ASSIST. MONITOR FOR SAFETY.
--- NOTE | 2021-03-13 07:18 | NUR ---
Patient hitting and kicking at staff as he was being assisted up to reclining w/c and then when he was up in w/c, he began to hit at staff, kick, and attempt to rise without assistance, Per MD order, Ativan and Haldol IM given. Fluids offered. chair alarm in place and functioning.
[2021-03-13 08:00] VITALS: BP 129/75
--- NOTE | 2021-03-13 12:13 | NUR ---
Blood glucose level at 1145 was 351 with 8 units of Insulin given. He has been attempting to rise and self transfer/ambulate all morning. His leggs and lower exts. are very weak and he is unsafe independently. He has been able zuly directed and redirected with most of his behaviorsn this morning.
--- NOTE | 2021-03-13 13:02 | NUR ---
DUE TO INCREASE IN PT FSBS. NEW ORDER PER DR. IVERSON METFORMIN 1,000 MG DAILY. WILL GIVE FIRST DOSE WHEN AVALIABLE.
--- NOTE | 2021-03-13 14:15 | PN ---
PATIENT:PRIMITIVO DURAN MEDICAL RECORD: [id number] LOCATION:[facility] ADMISSION DATE: 02/24/21 PROGRESS NOTE DATE OF SERVICE: 03/12/2021 SUBJECTIVE: The patient's case was discussed with staff. He has no new complaint. OBJECTIVE: The patient is in good behavioral control with poor insight about his situation. ASSESSMENT: Dementia. PLAN: Brief supportive and educational interventions were made. The patient's Geodon will be increased to a total of 1200 mg daily. Geodon is being used to help with his peripheral neuropathy. TRANSINT:[id number] Voice Confirmation ID: [id number] DOCUMENT ID: [id number] DAVID ROBLES MD at 1415 CC: [id number] DICTATION DATE: 03/12/21 173 TRIAGE NURSE: 03/13/21 [address] [facility] [address] [place] [address]
[2021-03-13 17:15] LABS: BASOPHILS 0.3 % (0-2); EOSINOPHILS 2.1 % (0-7); HEMATOCRIT 41.8 % (42.0-54.0); HEMOGLOBIN 13.7 g/dL (13.5-17.5); IMMATURE GRANULOCYTES 0.1 % (0-5); LYMPHOCYTE ABS# 1.59 10x3/uL (1.32-3.57); LYMPHOCYTES 23.5 % (15-50); MCH 28.7 pg (26.0-34.0); MCHC 32.8 g/dL (31.0-37.0); MCV 87.6 fL (80.0-100.0); MONOCYTES 8.3 % (2-11); NEUTROPHIL ABS# 4.44 10x3/uL (1.78-5.38); NEUTROPHILS 65.7 % (40-80); PLATELET COUNT 165 10x3/uL (130-400); RBC 4.77 10x6/uL (4.20-6.10); RDW 14.6 % (11.5-14.5); WBC 6.8 10x3/uL (4.8-10.8)
[2021-03-13 17:23] LABS: CALC OSMOLALITY 296 mosm/kg (275-300); CALCIUM 9.4 mg/dL (8.5-10.1); CARBON DIOXIDE 32.8 mmol/L (21.0-32.0); CHLORIDE - SERUM 103 mmol/L (98-107); POTASSIUM - SERUM 3.5 mmol/L (3.5-5.1); SODIUM 143 mmol/L (136-145); UREA NITROGEN 31 mg/dL (7-18); eGFR NON AFRICAN AMERICAN 77 mL/min (90-120)
[2021-03-13 17:31] LABS: GLUCOSE 190 mg/dL (74-106)
[2021-03-13 20:00] VITALS: BP 129/80
--- NOTE | 2021-03-13 20:51 | NUR ---
PT IS ALERT AND ORIENTED TO SELF ONLY. POOR INSIGHT INTO HIS SITUATION. RESTLESS AT TIMES. RECEIVED IN GERICHAIR IN THE HALLWAY OUTSIDE OF NURSES STATION. OBSERVED TALKING TO UNSEEN OBJECTS ON THE FLOOR. PT STATES "THIS IS MY DOG MAGDI." EASY TO REDIRECT PT BUT REQUIRES FREQUENT REDIRECTION. COMPLIANT WITH ALL MEDICATIONS. PROVIDED HS SNACK AND ASSISTED TO BED. BED ALARM ON AND WORKING. MONITOR FOR SAFETY.
--- NOTE | 2021-03-14 07:50 | NUR ---
nurse heard bed alarm. nurse noted pt came through siderails and was standing on the side of bed. nurse redirected pt into chair. pt tolerated well.
[2021-03-14 08:00] VITALS: BP 135/53
--- NOTE | 2021-03-14 09:30 | NUR ---
pt c/o of pain to lower left chest area. nurse noted a small round area being raised. nurse notified Roscoe Flynn APRN in regards to pt c/o of pain. new order for chest x-ray.
--- NOTE | 2021-03-14 11:25 | NUR ---
x-ray here at this time to obtain a x-ray of the area pt c/o of pain. pt tolerated very well.
--- NOTE | 2021-03-14 13:54 | NUR ---
pt sitting at table at this time. calm and cooperative. restless at this time. no aggressive behavior. complaint with meds, vitals and assessments. pt can not make needs known. requires 2x assistance with adls. confused. constant redirection needed. lacks insight to situation due to low cognitive functioning ability. chair alarm in place and active. will cont plan of care.
--- NOTE | 2021-03-14 18:10 | NUR ---
x-rays came to see him. pt tolerated well. pt on phone with daughter at this time. nurse attempted to call pts at facility and she was not feeling well to come speak on the phone. staff stated they call back at 7 or so.
[2021-03-14 20:00] VITALS: BP 147/86
--- NOTE | 2021-03-15 03:13 | NUR ---
B)RECEIVED PATIENT SITTING IN A RECLINER OUTSIDE THE NURSE'S STATION. ORIENTED TO SELF ONLY. ATTEMPTS TO GET OUT OF CHAIR UNASSISTED. SEXUALLY INAPPROPRIATE ATTEMPTING TO TOUCH NURSE'S BREAST. NOTED PATIENT BENDING OVER AND TRYING TO PICK SOMETHING OFF THE FLOOR. I)ADMINSITER MEDS AND MONITOR COMPLIANCE. REDIRECT FOR INAPPROPRIATE BEHAVIOR. R)MED COMPLIANT. POOR REDIRECTION. CONTINUES TO BE SEXUALLY INAPPROPRIATE. P)CONTINUE POC AND PROVIDE SAFE ENVIRONMENT.
[2021-03-15 08:00] VITALS: BP 111/78
--- NOTE | 2021-03-15 11:26 | NUR ---
pt being very sexually inappropriate, yelling out at staff, sliding out of chair and easy self to floor. unable to redirect pts behavior at this time. Haldol 2 mg po administered per PRN order. will reassess for effectiveness.
--- NOTE | 2021-03-15 12:26 | NUR ---
prn effective at this time.
--- NOTE | 2021-03-15 15:42 | NUR ---
PT SITTING IN CHAIR WITH EYES CLOSED. PT IS RESTLESS, DEMANDING. PT IS CONFUSED. ALERT TO SELF ONLY. REDIRECT AND REORIENT NEEDED. PT IS COMPLIANT WITH CRUSHED MEDS. LUNG SOUNDS BILATERALLY CLEAR. DENIES PAIN. CAN NOT MAKE NEEDS KNOWN. PT URINATES FREQUENTLY THIS SHIFT. REQUIRES ASSISTANCE WITH ADLS.PT REQUIRES CONSTANT REDIRECTION FROM PT ATTEMPTING TO STAND ON HIS OWN. WEAKNESS NOTED. CHAIR ALARM IN PLACE. WILL CONT PLAN OF CARE.
[2021-03-15 20:00] VITALS: BP 143/93
--- NOTE | 2021-03-16 02:01 | NUR ---
B)RECEIVED PATIENT SITTING IN A RECLINER OUTSIDE THE NURSE'S STATION. ORIENTED TO SELF ONLY. SEXUALLY INAPPROPRIATE. TRIES TO GRAB STAFF THEY WALK BY, PULLS HIS PENIS OUT IN FRONT OF THE FEMALES. TELLING THE FEMALES IF THEY CAN FIND THE RING HE WILL THEM. VISUAL HALLUCINATIONS TELLING STAFF THERE IS A LION OVER THERE.ATTEMPTS TO GET UP UNASSISTED. I)ADMINISTER MEDS AND MONITOR COMPLIANCE. REDIRECT FOR SEXUALLY INAPPROPRIATE BEHAVIORS. R)MED COMPLIANT. POOR REDIRECTION. CONTINUES TO TRY AND TOUCH AND MAKES INAPPROPRIATE COMMENTS. P)CONTINUE POC AND PROVIDE SAFE ENVIRONMENT.
[2021-03-16 07:30] VITALS: BP 152/76
--- NOTE | 2021-03-16 08:00 | NUR ---
RECEIVED PATIENT SIT IN RECLINING CHAIR IN HALLWAY. PATIENT IS AWAKE AND ALERT TO PERSON ONLY. PATIENT IS VERY SEXUALLY INAPPROPRIATE AT THIS TIME. YELLING OUT AT STAFF. PATIENT ATTEMPTS TO SLIDE SELF OUT OF CHAIR AND PUT SELF IN THE FLOOR AT TIMES. ASSESSMENT COMPLETED. PRESCRIBED MEDICATIONS PROVIDED ORDERED. MED COMPLIANT. REDIRECT AND REORIENT NEEDED. FALL PRECAUTIONS IN PLACE. WILL CONTINUE TO MONITOR.
--- NOTE | 2021-03-16 15:27 | NUR ---
PATIENT BECAME VERBALLY AND PHYSICALLY AGGRESSIVE WITH STAFF. PATIENT GRABS NURSE SCRUB TOP. PATIENT IS SEXUALLY INAPPROPRIATE AT THIS TIME. UNABLE TO REDIRECT PATIENT AT THIS TIME. HALDOL 2 MG IM AND aTIVAN 0.5 MG IM GIVEN PER NEEDED ORDER. WILL CPOC.
--- NOTE | 2021-03-16 19:31 | NUR ---
RECEIVED IN HALLWAY OUTSIDE OF NURSES STATION. RESTLESS. ATTEMPTS TO EXIT RECLIER WITHOUT ASSIST. CALM AND COOPERATIVE WITH CARE AND ASSESSMENT. NO SIGNS OF AGGRESSION. REDIRECT AND REORIENT NEEDED. CONTINUES TO SIT IN RECLINER IN HALLWAY. CONTINUE PLAN OF CARE.
[2021-03-16 20:00] VITALS: BP 137/86
--- NOTE | 2021-03-17 07:00 | NUR ---
REC'D PT SITTING IN W/C IN HALLWAY BY THE NURSES STATION. AWAKE AND ALERT TO PERSON ONLY. PRESCRIBED MEDICATIONS PROVIDED ORDERED. MED COMPLIANT. PT CAN BE SEXUALLY INAPPROPRIATE WITH STAFF AT TIMES. HARD TO REDIRECT. REDIRECT AND REORIENT NEEDED. PT CAN BECOME VERBALLY AGGRESSIVE WITH STAFF. FALL PRECAUTIONS IN PLACE. WILL CPOC.
[2021-03-17 08:21] VITALS: BP 143/59
--- NOTE | 2021-03-17 17:30 | NUR ---
MHT FEEDING PT DURING DINNER. PT STARTED CHOKING PER MHT. STAFF NURSES WENT TO ASSESS PT. PT NOTED CHOKING AND EYES ROLLED BACK. HEIMLICH MANEUVER PERFORMED PER STAFF NURSES. CHUNK OF CHOPPED MEAT FELL ONTO FLOOR FROM PTS AIRWAY. PT IS RESPONDING TO STAFF AT THIS TIME. URSULA- CARE PROVIDED PER STAFF. PT ASSISTED TO RECLINING CHAIR PER STAFF X3. PT SITTING IN UPRIGHT POSITION. NO DISTRESS NOTED. DR. IVERSON NOTIFIED. SPEECH EVAL ORDERED. WILL CONTINUE TO MONITOR FOR SAFETY. WILL CPOC.
[2021-03-17 20:00] VITALS: BP 121/68
--- NOTE | 2021-03-17 22:00 | NUR ---
ATTEMPTS TO HIT STAFF DURING CARE. REDIRECT AND REORIENT NEEDED.
--- NOTE | 2021-03-17 22:59 | NUR ---
RECEIVED IN HALLWAY. RESTING IN A RECLINER WITH EYES OPEN. RESTLESS. COOPERATIVE WITH CARE AND ASSESSMENT. NO SIGNS OF AGGRESSION. REDIRECT AND REORIENT NEEDED. CONTINUES TO SIT IN HALLWAY. BECAME AGGRESSIVE WITH REDIRECTION LATER THIS EVENING. CONTINUES TO REDIRECT AND REORIENT. CONTINUE PLAN OF CARE.
--- NOTE | 2021-03-18 14:26 | NUR ---
RECEIVED PATIENT SITTING IN A RECLINING CHAIR IN [place] BY THE NURSES STATION. ASSESSMENT COMPLETED. PRESCRIBED MEDICATIONS PROVIDED ORDERED. MED COMPLIANT WITH MEDS CRUSHED IN PUDDING. PATIENT CAN BECOME VERBALLY AND PHYSICALLY AGGRESSIVE WITH STAFF UPON REDIRECTION. PATIENT CAN BE VERY SEXUALLY INAPPROPRIATE WITH STAFF AT TIMES. NO AGGRESSION NOTED AT THIS TIME. REDIRECT AND REORIENT NEEDED. FALL PRECAUTIONS IN PLACE FOR SAFETY. WILL CPOC.
--- NOTE | 2021-03-18 14:28 | NUR ---
SPEECH THERAPY PRESENT FOR SPEECH EVAL. SPEECH RECOMMENDED N.P.O. FOR PATIENT AT THIS TIME. WILL CPOC.
[2021-03-18 18:47] LABS: ANION GAP 8.7 mmol/L (8-16); CALCIUM 9.6 mg/dL (8.5-10.1); CARBON DIOXIDE 35.9 mmol/L (21.0-32.0); CREATININE - SERUM 1.1 mg/dL (0.6-1.3); POTASSIUM - SERUM 3.6 mmol/L (3.5-5.1)
[2021-03-18 20:00] VITALS: BP 145/70
--- NOTE | 2021-03-18 23:28 | NUR ---
B)RECEIVED PATIENT LYING IN BED. ORIENTED TO SELF ONLY. TURNS SELF CROSSWAYS IN THE BED. ATTEMPTS TO REACH OUT AND GRAB FEMALE STAFF AND WILL GRIN. PT IS CURRENTLY NPO AND MEDICATIONS ARE ON HOLD. I)REORIENT NEEDED. REDIRECT FOR SEXUALLY INAPPROPRIATE BEHAVIOR. R)POOR REORIENTATION. DIFFICULTY COMPREHENDING PROCESSING AND RETAINING INFORMATION. POOR REDIRECTION FOR SEXUALLY INAPPROPRIATE BEHAVIOR. TRIES TO TOUCH STAFF INAPPROPRIATELY. P)CONTINUE POC AND PROVIDE SAFE ENVIRONMENT.
[2021-03-19 08:19] VITALS: BP 119/77
--- NOTE | 2021-03-19 11:16 | NUR ---
GT BELT, PATIENT WAS MOD ASST TO STAND FROM CHAIR. PATIENT WAS UNSTEADY WHEN STANDING AND NEEDED TO GET HIS BALANCE. PATIENT WAS ABLE TO WALK AROUND DAY ROOM FOR 50 FEET USING WALKER WITH MOD ASST. PATIENT WAS UNSTEADY DURING WALK BUT GOT A LITTLE BETTER THE WALK WENT ON.
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
--- NOTE | 2021-03-19 12:28 | NUR ---
Patient is NPO per ST recommendation due to Aspiration and swallow study results. Patient did not receive am medications or Insulin this am. Patient is sitting up in dayroom and is doing well in spite of being NPO. He has to be reminded often of NPO status and he will say "yeah".
--- NOTE | 2021-03-19 14:03 | NUR ---
Nutrition Re-Assessment Patient seen by TRUCK CHAUFFEUR yesterday and recommended NPO and alternate source of nutrition if PO intake patient continues current function. Diet: NPO Last BM: 03/19/21 Wt: 165# (03/09/21); Admit Wt: 169# (02/24/21)- noted -4# Meds noted: bumex, SSI, k-dur Labs noted (03/18/21): Na 146(H), Glu 163(H); POC Glu 159, 155(H)- 03/19/21 Estimated nutrition needs: 1550-1925cal (20-25kcal/kg Act), 62-77gms protein (0.8-1), 1925-2300mL fluid (or per MD) Nutrition diagnosis: Inadequate energy intake r/t inadequate oral intake AEB PO intake average <50%, now NPO. Nutrition goals: -SAFE PO intake if medically feasible -Nutrition (EN or PO) within the next 24hrs -Meet fluid needs -Stable weight, no further weight loss DHS Recommendations/Interventions: -Recommend advance PO diet per TRUCK CHAUFFEUR recommendations. -If unable to resume PO diet within the next 48hrs, RD recommends EN (NGT vs PEG placement). -If EN needed recommend: Glucerna 1.5 @ 45mL/hr. -RD will follow-up 03/20/21.
--- NOTE | 2021-03-19 16:37 | NUR ---
pt sitting at table at this time. pt is restless. confused. alert to self only. pt is compliant with meds, vitals and assessments. pt was previously NPO. diet was upgraded this shift. no insight noted to situation. cont to redirect pts behavior. incontient. pericare q 2 hr and prn. requires assistance with ADLS. pt can make some needs known. pt did not sleep on previous shift. pt has not been drowsy this shift. conts being sexually inappropriate behavior. redirect when sexual inappopriate behavior. pt tolerated PT very well. chair alarm in place and active. will cont plan of care.
--- NOTE | 2021-03-19 17:53 | NUR ---
nurse spoke with pt daughter Alejandra Walden about pt intake and status. nurse stated pt ate 100% of meal, drank 3 teas and one water. Pt was ate table talking and talking with other peers. he is awake and more alert. she stated she was very worried about him since she rec'd the phone call from [facility] about Hospice earlier this shift. she was feeling down all day and worried. She thanked nurse for the phone call. she spoke with pt for several minutes. she stated she would be attending visitation on Wednesday and asked if he will be sleepy like he was last time. nurse stated pt would be more awake and alert. she thanked nurse.
[2021-03-19 20:00] VITALS: BP 134/87
--- NOTE | 2021-03-19 22:56 | NUR ---
B)RECEIVED PATIENT SITTING OUTSIDE THE NURSE'S STATION. ORIENTED TO SELF ONLY. SEXUALLY INAPPROPRIATE IE TRYING TO TOUCH STAFF WHEN THEY WALKING BY OR WHILE PROVIDING CARE. ALSO ASKED MURSE IF SHE WAS AND THEN ASKED NURSE IF SHE WILL HIM. ATTEMPTS TO GET OUT OF THE CHAIR OR OUT OF THE BED WITHOUT ASSIST. DISROBES IN FRONT OF OTHERS. I)ADMINISTER MEDS AND MONITOR COMPLIANCE. REDIRECT FOR INAPPROPRIATE BEHAVIORS. R)MED COMPLIANT. POOR REDIRECTION. CONTINUES TO DISROBE AND TOUCH INAPPROPRIATELY. P)CONTINUE POC AND PROVIDE SAFE ENVIRONMENT.
[2021-03-20 09:17] VITALS: BP 134/75
--- NOTE | 2021-03-20 09:21 | NUR ---
Nutrition Follow-up: Patient was seen by CLEARING HAND yesterday evening and showed increased alertness and diet was advanced. Diet: [place] Thick Liquids; MECH Soft with ground meat PO intake: ate 100% of dinner last night. Prior to being placed NPO, ate 75% - 100% - 30% x 3 meals on 03/17/21. Appetite appears to be good. Last BM: 03/19/21 x 3 Wt: 165# (03/09/21); Admit Wt: 169# (02/24/21) Meds noted: bumex, SSI Labs noted: POC Glu 163(H) Recommend continue PO diet per CLEARING HAND recommendations. Will continue to honor food preferences within diet restrictions. Will continue to monitor PO intake and wt trend. RD will follow-up 03/26/21.
--- NOTE | 2021-03-20 10:42 | NUR ---
PATIENT REFUSED MOBILITY TODAY.
--- NOTE | 2021-03-20 18:01 | NUR ---
pt sitting by nurse at this time. pt was self propelling in w/c picking at things. staff conts to redirect. pt is alert to self only. confused. redirect and reorient as needed. can not make needs known. requires assistance with ADLS. pt can be sexual inappopriate with behaviors. no aggressive behavior noted. conts ground meat and nectar thick liquid. chair alarm in place and active. will cont plan of care.
[2021-03-20 19:27] VITALS: BP 117/73
--- NOTE | 2021-03-21 04:27 | NUR ---
B)RECEIVED PATIENT MOBILE ON UNIT IN A WHEELCHAIR. ORIENTED TO SELF ONLY. TELLING STAFF MEMBER THEY ARE GOING TO GO TO [place] TOGETHER. DISROBED IN THE DAYROOM. SEXUALLY INAPPROPRIATE IE GRABBING A PEERS HAND AND THEN MAKING A SEXUAL GESTURE WITH HIS HIPS. I)ADMINISTER MEDS AND MONITOR COMPLIANCE. REDIRECT FOR SEXUALLY INAPPROPRIATE BEHAVIOR. R)MED COMPLIANT. POOR REDIRECTION. PATIENT WILL GRIN AND DISREGARD THE VERBAL INSTRUCTION. P)CONTINUE POC AND PROVIDE SAFE ENVIRONMENT.
[2021-03-21 08:48] VITALS: BP 119/81
--- NOTE | 2021-03-21 13:44 | NUR ---
PT SITTING IN W/C AT THIS TIME. PT IS RESTING AT THIS TIME. PT IS CONFUSED. ALERT TO SELF ONLY. PT CAN BE SEXUALLY INAPPOPRAITE. REDIRECT AND REORIENT PT NEEDED. PT CONTS ON GROUND MEAT AND NECTAR THICK LIQUIDS. PT IS COMPLIANT WITH CRUSHED MEDS, VITALS AND ASSESSMENTS. REQUIRES ASSISTANCE WITH ADLS. CAN NOT MAKE NEEDS KNOWN. CHAIR ALARM IN PLACE AND ACTIVE. WILL CONT PLAN OF CARE.
[2021-03-21 20:08] VITALS: BP 122/75
--- NOTE | 2021-03-21 20:56 | NUR ---
PT IS ALERT AND ORIENTED TO SELF ONLY. RECEIVED IN A WHEELCHAIR IN THE HALLWAY OUTSIDE THE NURSES STATION. OBSERVED ATTENDING TO VISUAL HALLUCINATIONS. PICKING AT THE FLOOR AND OBSERVED CALLING FOR HIS DOG. ADMITS TO SEEING HIS DOG. COMPLIANT WITH ALL MEDICATIONS. RESISTANT TO REDIRECTION. WANDERING THE HALLS IN A WHEELCHAIR. MONITOR FOR SAFETY.
[2021-03-22 07:35] VITALS: BP 122/71
--- NOTE | 2021-03-22 13:05 | NUR ---
HAS RESTED WITH EYES CLOSED MOST OF TODAY BUT DOES AROUSE EASILY FOR DIET AND MEDS.TAKES MEDS CRUSHED AND IN PUDDING WITH NECTOR THICK LIQUIDS.NO AGGRESSION OR HALLUCINATIONS OBSERVED.DOES NOT MAKE NEEDS KNOWN AND IS INCONTINENT OF BOWEL AND BLADDER.WILL CONTINUE WITH CURRENT PLAN OF CARE,MONITOR FOR CHANGES AND SAFETY.
[2021-03-22 19:52] VITALS: BP 111/81
--- NOTE | 2021-03-22 21:30 | NUR ---
PT IS ALERT AND ORIENTED TO SELF ONLY. POOR INSIGHT INTO HIS SITUATION. RECEIVED IN KENNY CHAIR IN HALLWAY OUTSIDE NURSES STATION. RESTLESS AT TIMES. OBSERVED TALKING TO UNSEEN OTHERS. NO AGGRESSION NOTED. RESISTANT TO REDIRECTION AT TIMES. COMPLIANT WITH ALL MEDICATIONS. PROVIDED HS SNACK AND WARM BLANKET. MONITOR FOR SAFETY.
[2021-03-23 07:30] VITALS: BP 144/77
--- NOTE | 2021-03-23 08:30 | NUR ---
RECEIVED IN HALLWAY OUTSIDE OF NURSES STATION. RESTING IN RECLINER WITH EYES CLOSED. CALM AND COOPERATIVE WITH CARE AND ASSESSMENT. NO AGGRESSIVE BEHAVIORS NOTED. REDIRECT AND REORIENT NEEDED. EATING BREAKFAST AT THIS TIME. CONTINUE PLAN OF CARE.
--- NOTE | 2021-03-23 14:21 | NUR ---
Rec'd patient this am up in a reclining w/c in the hallway. He is med compliant and takes his meds crushed and he likes Glucerna. He is a/o to person. He is on nectar thickened liquids. His blood glucose levels this am have been 186 and 223. He rec'd Insulin. He has a rash to his right thigh. He can be resistant to care and has been noted this am to be sitting in his chair and looking at the wall calling out "Sinureta" and then repeated that multiple times. He has shown a little aggression to staff this morning. His appetite is poor but he does drink well mary. Glucerna.
--- NOTE | 2021-03-23 19:42 | NUR ---
RECEIVED INDAYROOM. SITTING AT THE TABLE WTIH A PEERS. VERY CONFUSED. RESTLESS AT TIMES. CALM AND COOPERATIVE WITH CARE AND ASSESSMENT. NO SIGNS OF AGGRESSION. REDIRECT AND REORIENT NEEDED. PLACED IN BED BUT ATTEMPTS TO EXIT BED WITHOUT ASSIST CONSTANTLY. MOVED TO HALLWAY WITH PEERS FOR SAFETY. CONTINUE PLAN OF CARE.
[2021-03-23 20:20] VITALS: BP 118/76
[2021-03-24 08:00] VITALS: BP 125/74
--- NOTE | 2021-03-24 11:18 | NUR ---
GT BELT, PATIENT MOD ASST TO STAND AND MOD ASST TO WALK 40 FEET USING WALKER. PATIENT IS UNSTEADY WHEN STANDING AND WALKING, HIGH FALL RISK.
--- NOTE | 2021-03-24 16:02 | NUR ---
CONFUSED AND DISORIENTED.COMPLIANT WITH STAFF AND MEDS,MEDS CRUSHED AND GIVEN IN PUDDING.AMBULATES WITH PT,HAS VERY UNSTEADY GAIT.NECTOR THICK LIQUIDS.WILL CONTINUE WITH CURRENT PLAN OF CARE,MONITOR FOR CHANGES AND SAFETY.NO AGGRESSION OBSERRVED.
--- NOTE | 2021-03-24 19:40 | NUR ---
B)RECEIVED PATIENT SITTING OUTSIDE THE NURSE'S STATION. ORIENTED TO SELF ONLY. CONTINUOUSLY TRYING TO GET OUT OF CHAIR UNASSISTED. RESISTING WHEN STAFF ATTEMPTS TO REPOSITION HIM IN THE CHAIR. NOT RESPONDING TO VERBAL REDIRECTION. I)ADMINISTER MEDS AND MONITOR COMPLIANCE. REDIRECT FOR RESISTING ASSISTANCE WITH REPOSITIONING. R)MED COMPLIANT. CONTINUES TO TRY TO GET OUT OF CHAIR WITHOUT ASSISTANCE. PUSHES AWAY FROM STAFF WHEN THEY ATTEMPT TO ASSIST HIM. POOR REDIRECTION. P)CONTINUE POC AND PROVIDE SAFE ENVIRONMENT.
[2021-03-24 20:00] VITALS: BP 118/70
--- NOTE | 2021-03-24 20:11 | NUR ---
NOT FOLLOWING REDIRECTION AND ATTEMPTING TO GET OUT OF CHAIR. GEODON 20MG IM ADMINSITERED BY Suhas DERAS RN.
--- NOTE | 2021-03-25 02:53 | NUR ---
RESTING WITH EYES CLOSED AFTER PRN. NO ACUTE DISTRESS NOTED.
[2021-03-25 08:02] VITALS: BP 106/80
--- NOTE | 2021-03-25 10:35 | NUR ---
HOLD PER NSG DUE TO INCREASE CONFUSION
--- NOTE | 2021-03-25 18:05 | NUR ---
ORIENTED TO SELF ONLY.COMPLIANT WITH MEDS.MEDS CRUSHED AND TAKEN IN APPLESAUCE.HONEY THICK LIQUIDS.AGGRESSIVE WITH STAFF DURING SHOWER AND OTHER CARE,HIT AT STAFF.WILL CONTINUE WITH CURRENT PLAN OF CARE,MONITOR FOR CHANGES AND SAFETY.
[2021-03-25 20:15] VITALS: BP 111/79
--- NOTE | 2021-03-26 02:49 | NUR ---
B) Patient is alert and oriented to self, calm and cooperative this shift, I) Administered scheduled medications as ordered, redirected as needed, monitored for safety. R) Medication compliant, resting quietly in bed now, P) Continue plan of care.
[2021-03-26 08:00] VITALS: BP 133/74
--- NOTE | 2021-03-26 10:53 | NUR ---
Nutrition Re-Assessment Followed by PUBLIC TRANSPORTATION INSPECTOR. Diet: Diabetic [place] Thick Mech Soft with Ground Meat PO intake: ~76% average x last 9 meals Last BM: 03/21/21 Wt: 159.2# (03/23/21); Admit Wt: 169# (02/24/21)- noted -9.8# wt change since admit. PO intake appears adequate at this time. Also noted patient is on bumex. Meds noted: glipizide, megace ES, bumex, SSI, k-dur Labs noted: POC Glu 160(H) Estimated nutrition needs: 1550-1925cal (20-25kcal/kg Act), 62-77gms protein (0.8-1gms/kg), 1925-2300mL fluid (or per MD) Nutrition diagnosis: Unintended weight loss r/t unknown causes at this time, possible fluid loss? AEB -9.8# weight loss in recorded weights since admit. Nutrition goals: -PO intake =/>75% -Dry weight stable DHS -Blood glucose to trend nearer WNL Recommendations/Interventions: -Recommend continue current diet/or per PUBLIC TRANSPORTATION INSPECTOR recommendations. Will continue to honor food preferences within diet restrictions. -Recommend continue appetite stimulant as medically feasible. -Recommend offer oral nutrition supplements if PO intake <65% of meals. -RD will continue to monitor PO intake and wt trend. -RD will follow-up within 7 days.
--- NOTE | 2021-03-26 11:07 | NUR ---
GT BELT, PATIENT MOD ASST TO STAND AND MOD ASST TO WALK 10 FEET USING WALKER. PATIENT IS UNSTEADY DURING WALKING AND A FALL RISK.
--- NOTE | 2021-03-26 14:56 | NUR ---
Rec' patient up this am in the hallway sitiing in a w/c. He is med compliant and takes meds crushed and placed in foods. He loves Glucerna supplemental drink. He has sleep most of the day and participated little in exercise and group meeting. He has shown no aggressive behaviors today toward staff members.He is on nectar thick liquids.1130 FSBS was 19.
--- NOTE | 2021-03-26 15:22 | PN ---
PATIENT:PRIMITIVO DURAN MEDICAL RECORD: [id number] LOCATION:[facility] ADMISSION DATE: 02/24/21 PROGRESS NOTE DATE OF SERVICE: SUBJECTIVE: The patient's case was discussed with staff. He has no new complaint. OBJECTIVE: The patient denies intent to harm himself or others. He is tolerating his medicines reasonably well. ASSESSMENT: Dementia. PLAN: Current medicines have been reviewed and will be maintained. The dose of the Klonopin will be reduced slightly. TRANSINT:[id number] Voice Confirmation ID: [id number] DOCUMENT ID: [id number] DAVID ROBLES MD at 1522 CC: [id number] DICTATION DATE: 03/24/21 1506 LUMBER YARD WORKER: 03/26/21 0035 ADM IN [facility] [address] [place] [address]
--- NOTE | 2021-03-26 15:22 | PN ---
PATIENT:PRIMITIVO DURAN MEDICAL RECORD: [id number] LOCATION:[facility] ADMISSION DATE: 02/24/21 PROGRESS NOTE DATE OF SERVICE: 03/25/2021 SUBJECTIVE: The patient's case was discussed with staff. He has no new complaint. OBJECTIVE: The patient is in good behavioral control with limited insight about his situation. ASSESSMENT: Dementia. PLAN: The patient will have his Seroquel increased slightly. He did require p.r.n. medication last night because of some agitation. TRANSINT:[id number] Voice Confirmation ID: [id number] DOCUMENT ID: [id number] DAVID ROBLES MD at 1522 CC: [id number] DICTATION DATE: 03/25/21 1613 ED TECH: 03/26/21 0334 ADM IN [place] [address] [place] [address]
[2021-03-26 20:00] VITALS: BP 98/76
--- NOTE | 2021-03-26 21:24 | NUR ---
PT IS ALERT AND ORIENTED TO SELF ONLY. RECEIVED IN DAYROOM SOCIALIZING WITH PEERS. HE REQUIRES ASSISTANCE WITH MEALS. CALM WITH STAFF AND PEERS. COMPLIANT WITH ALL MEDICATIONS. NO AGGRESSION NOTED. EASY TO REDIRECT.
--- NOTE | 2021-03-27 11:31 | NUR ---
ALERT, RESTLESS, QUITE VERBAL AND CONFUSED. REFUSED MORNING MEDS, THROWING THEM ON THE FLOOR. NO AGGRESSION NOTED THUS FAR THIS SHIFT. CONTINUE POC.
[2021-03-27 11:58] VITALS: BP 134/80
--- NOTE | 2021-03-27 13:41 | NUR ---
PATIENT REFUSED ALL MOBILITY.
--- NOTE | 2021-03-27 15:24 | PN ---
PATIENT:PRIMITIVO DURAN MEDICAL RECORD: [id number] LOCATION:[facility] ADMISSION DATE: 02/24/21 PROGRESS NOTE DATE OF SERVICE: 03/26/2021 SUBJECTIVE: The patient's case was discussed with staff. He has no new complaint. OBJECTIVE: The patient is in good behavioral control. He has poor insight about his situation. ASSESSMENT: Dementia. PLAN: Current medicines will be maintained. If this level of improvement continues, I anticipate he can be discharged soon. TRANSINT:[id number] Voice Confirmation ID: [id number] DOCUMENT ID: [id number] DAVID ROBLES MD at 1524 CC: [id number] DICTATION DATE: 03/26/21 164 TECHNOLOGY COORDINATOR: 03/27/21 0020 ADM IN [facility] [address] [place] [address]
[2021-03-27 20:00] VITALS: BP 115/84
--- NOTE | 2021-03-27 20:57 | NUR ---
RECEIVED PATIENT IN DAYROOM, SITTING IN GERICHAIR AT THE TABLE, HE IS CONFUSED BUT CALM, MEDS CRUSHED AND GIVEN TO HIM, HE IS ABLE TO REQUEST HIS BASIC NEEDS. NO ADVERSE REACTION NOTED. WILL FOLLOW POC
[2021-03-28 08:04] VITALS: BP 118/57
--- NOTE | 2021-03-28 10:30 | NUR ---
GT BELT, PATIENT MOD ASST TO STAND AND MOD ASST TO WALK 110 FEET USING WALKER. PATIENT DID A LITTLE BETTER WITH HIS BALANCE, BUT STILL DOES NOT USE WALKER PROPERLY. PUSHES WALKER TOO FAR AWAY FROM HIM AND STEPS OUTSIDE IT.
--- NOTE | 2021-03-28 10:34 | NUR ---
Rec'd patient this am sitting a reclining w/c. He is med compliant with meds being crushed and placed in food or liquids. Today, his meds were crushed and placed in Glucerna. He is A/O times 1 to person. He is confused. He sat with this nurse this morning and talked a lot about "killer" "[place]" "taking the nurse and buying the beer". This nurse attempted to redirect but most often he is diff. to redirect from the conversation he is on. He can easily become aggressive with staff mary. if he feels they are pressuring him to do something or he is not understood. He was aggressive once this morning and yelled out in the dayroom to the MHTs. He was redirected. He sat in group this moring but did not participate..
[2021-03-28 11:32] VITALS: BP 118/57
[2021-03-28 20:00] VITALS: BP 143/90
--- NOTE | 2021-03-28 23:18 | NUR ---
RECEIVED PATIENT IN DAYROOM, HE IS CONFUSED AND BECAME AGGRESSIVE TOWARD STAFF AND WAS CUSSING, HITTING, SCRATCHING AND TRYING TO BITE. HE WAS GIVEN GEODON IM FOR AGGRESSION. RESULTS WERE EFFECTIVE. WILL FOLLOW POC
--- NOTE | 2021-03-29 08:00 | NUR ---
PT COMBATIVE WITH STAFF WHEN ATTEMPTING TO ASSIST INTO CHAIR. GEODON 20 MG IM GIVEN PER PRN ORDER. WILL REASSESS FOR EFFECTIVENESS.
--- NOTE | 2021-03-29 09:00 | NUR ---
PRN EFFECTIVE AT THIS TIME.
--- NOTE | 2021-03-29 11:28 | NUR ---
PT SITTING AT TABLE WITH EYES CLOSED. RESP EVEN AND NONLABORED. PT IS NOT AGGRESSIVE AT THIS TIME. PT WAS AGGRESSIVE AND COMBATIVE WITH STAFF THIS A.M. GEODON 20 MG IM GIVEN AT 0755. PT DID NOT TOLERATE WELL. CONFUSED AND ALERT TO SELF ONLY. CONSTANTLY REDIRECT AND REORIENT. PT IS RESISTANT TO REDIRECT AT TIMES. PT IS COMPLIANT WITH MEDS AT TIMES. CAN NOT MAKE NEEDS KNOWN. INCONTIENT OF BOWEL AND BLADDER. PERICARE Q 2 HR AND PRN. W/C CUSHION IN PLACE. CHAIR ALARM IN PLACE AND ACTIVE. WILL CONT PLAN OF CARE.
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
[2021-03-29 20:00] VITALS: BP 148/85
--- NOTE | 2021-03-30 00:30 | NUR ---
B)RECEIVED PATIENT SITTING OUTSIDE THE NURSE'S STATION. CONFUSED AND DISORIENTED. PT IS EXHIBITING MORE AGGRESSIVE BEHAVIOR BY SCRATCHING, SWINGING AT STAFF OR PUSHING AWAY WHEN ATTEMPTING TO CHANGE OR REPOSITION HIM. DOES NOT ATTEMPT TO STAND WHEN CHANGING HIM ALTHOUGH HE HAS BEEN WALKING WITH PT. DEFIANT. I)ADMINISTER MEDS AND MONITOR COMPLIANCE. REDIRECT FOR AGGRESSIVE BEHAVIOR. R)MED COMPLIANT. POOR REDIRECTION. PATIENT WILL GLARE TELL YOU TO GET AWAY AND NOT FOLLOW VERBAL INSTRUCTIONS. P)CONTINUE POC AND PROVIDE SAFE ENVIRONMENT.
--- NOTE | 2021-03-30 17:30 | NUR ---
RECEIVED IN HALLWAY OUTSIDE OF PATIENT ROOM. WANDERING HALLS. VERY CONFUSED. UNABLE TO FOLLOW DIRECTIONS. CALM AND COOPERATIVE WITH CARE AND ASSESSMENT. COMPLIANT WITH MEDICATIONS. NO AGGRESSIVE BEHAVIOR. REDIRECT AND REORIENT NEEDED. EATING DINNER AT THIS TIME. CONTINUE PLAN OF CARE.
--- NOTE | 2021-03-30 17:40 | NUR ---
RECEIVED IN HALLWAY OUTSIDE OF NURSES STATION IN [facility]. AGGRESSIVE WITH MHT THIS MORNING WITH CARE AND ATTMEPTING TO GET VITAL SIGNS. REFUSED VS. COMPLIANT WITH MEDICATIONS. REDIRECT AND REORIENT NEEDED. EATING DINNER AT THIS TIME. CONTINUE PLAN OF CARE.
--- NOTE | 2021-03-30 23:17 | NUR ---
RECEIVED IN HALLWAY OUTSIDE OF NURSES STATION. RESTLESS AT TIMES. CALM AND COOPERATIVE WITH CARE AND ASSESSMENT. NO SIGNS OF AGGRESSION. REDIRECT AND REORIENT NEEDED. RESTING IN BED WITH EYES CLOSED AT THIS TIME. CONTINUE PLAN OF CARE.
[2021-03-30 23:36] VITALS: BP 121/62
[2021-03-31 07:30] VITALS: BP 145/75
--- NOTE | 2021-03-31 11:13 | NUR ---
GT BELT, PATIENT MOD ASST TO STAND AND TO WALK 110 FEET USING WALKER. PATIENT SAT ON TOILET THEN STOOD AND WALKED BACK INTO DAY ROOM WITH MOD ASST USING WALKER. PATIENT UNSTEADY WHEN STANDING AND DURING WALK.
--- NOTE | 2021-03-31 12:15 | NUR ---
RECEIVED IN HALLWAY OUTSIDE OF NURSES STATION. RESTING IN RECLINER WITH EYES OPEN. CALM AND COOPERATIVE WITH CARE AND ASSESSMENT. NO AGGRESSIVE BEAHIVOR TODAY. REDIRECT AND REORIENT NEEDED. EATING LUNCH AT THIS TIME. CONTINUE PLAN OF CARE.
--- NOTE | 2021-03-31 19:37 | NUR ---
RECEIVED IN HALLWAY. SITTING IN A RECLINING CHAIR WITH PEERS BY HIS SIDE. SOCIAL. CALM AND COOPERATIVE WITH CARE AND ASSESSMENT. NO SIGNS OF AGGRESSION. REDIRECT AND REORIENT NEEDED. CONTINUES TO SIT CALMLY IN HALLWAY. CONTINUE PLAN OF CARE.
[2021-03-31 23:05] VITALS: BP 127/94
[2021-04-01 08:00] VITALS: BP 140/84
--- NOTE | 2021-04-01 09:12 | NUR ---
REC'D PT IN HALLWAY SITTING IN W/C. AWAKE AND ALERT TO PERSON ONLY. CALM AND COOPERATIVE WITH ASSESSMENT. PRESCRIBED MEDICATIONS PROVIDED ORDERED. MED COMPLIANT. NO AGGRESSION NOTED AT THIS TIME. REDIRECT AND REORIENT NEEDED. FALL PRECAUTIONS IN PLACE FOR SAFETY. WILL CPOC.
--- NOTE | 2021-04-01 10:48 | PN ---
PATIENT:PRIMITIVO DURAN MEDICAL RECORD: [id number] LOCATION:[facility] ADMISSION DATE: 02/24/21 PROGRESS NOTE DATE OF SERVICE: 03/27/2021 SUBJECTIVE: The patient's case was discussed with staff. He has no new complaint. OBJECTIVE: The patient is in good behavioral control. He has poor insight about his situation. He is tolerating his medicines well. ASSESSMENT: Vascular dementia. PLAN: Current medicines and therapies have been reviewed and will be maintained. Long-term prognosis is guarded. TRANSINT:[id number] Voice Confirmation ID: [id number] DOCUMENT ID: [id number] DAVID ROBLES MD at 1048 CC: [id number] DICTATION DATE: 03/27/21 1536 LETTER OF CREDIT CLERK: 03/27/21 1655 ADM IN [facility] [address] [place] [address]
[2021-04-01] MEDS ORDERED: NEURONTIN 400400 MG PO (16:50)
[2021-04-01] MEDS ORDERED: NAMENDA5 MG PO (16:50)
[2021-04-01] MEDS ORDERED: SEROQUEL100 MG PO (16:51)
[2021-04-01] MEDS ORDERED: ZOLOFT50 MG PO (16:51)
[2021-04-01] MEDS ORDERED: SEROQUEL25 MG PO (16:51)
[2021-04-01] MEDS ORDERED: GLUCOTROL PO (16:52)
[2021-04-01] MEDS ORDERED: Megace ES [CHEMO] PO (16:52)
--- NOTE | 2021-04-01 21:09 | NUR ---
RECEIVED IN HALLWAY. SITTING CALMLY IN A RECLINER WITH PEERS AT HIS SIDE. CALM AND COOPERATIVE WITH CARE AND ASSESSMENT. NO SIGNS OF AGGRESSION. REDIRECT AND REORIENT NEEDED. CONTINUES TO SIT QUIETLY IN HALLWAY. CONTINUE PLAN OF CARE.
[2021-04-01 21:41] VITALS: BP 135/94
[2021-04-02 08:00] VITALS: BP 134/72
--- NOTE | 2021-04-02 10:12 | NUR ---
Nutrition Re-Assessment Diet: Diabetic [place] thick with Mech Soft/Ground Meats PO intake: ~53% average x last 9 meals (varied 0-100% meals) Last BM: 04/02/21 Wt: 161.2# (03/30/21); Admit Wt: 165# (03/09/21); 159.2# (03/23/21) Meds noted: glipizide, megace ES, bumex, SSI, kdur Labs noted: POC Glu 138(H) Estimated nutrition needs: 1550-1925cal (20-25kcal/kg Act), 62-77gms protein (0.8-1gms/kg), 1925-2300mL fluid (or per MD) Nutrition diagnosis: Inadequate energy intake r/t inadequate oral intake AEB PO intake <65%. Nutrition goals: -PO intake will increase to >65% -Meet fluid needs -Stable weight DHS Recommendations/Interventions: -Recommend PO diet per OUTER DIAMETER GRINDER recommendations. Will continue to honor food preferences within diet restrictions. -Recommend continue appetite stimulant as medically feasible. -Will add Glucerna with meals. -RD will follow-up within 7 days.
--- NOTE | 2021-04-02 12:45 | NUR ---
PT D/C BACK TO FACILITY WITH 2 VAN DRIVES. PT WAS IN A GOOD MOOD UPON D/C. ALL PERSONAL BELONGINGS WAS SENT WITH PT AT THIS TIME. ALL PAPERWORK SENT WITH PT AND COPY FAXED INCLUDING ARRON. PERSONAL W/C SENT BACK WITH PT WELL. NO AGGRESSIVE NOTED. VERY PLESANT.
--- NOTE | 2021-04-02 12:46 | PN ---
PATIENT:PRIMITIVO DURAN MEDICAL RECORD: [id number] LOCATION:[facility] ADMISSION DATE: 02/24/21 PROGRESS NOTE DATE OF SERVICE: 04/01/2021 SUBJECTIVE: The patient's case was discussed with staff. He has no new complaint. OBJECTIVE: The patient is eating and sleeping well. He has not been aggressive. ASSESSMENT: Vascular dementia. PLAN: The patient will be transitioned out of the hospital tomorrow. His long-term prognosis is guarded. TRANSINT:[id number] Voice Confirmation ID: [id number] DOCUMENT ID: [id number] DAVID ROBLES MD at 1246 CC: [id number] DICTATION DATE: 04/01/21 1646 JUNK DEALER: 04/01/212007 ADM IN [facility] [address] [place] [address]
--- NOTE | 2021-04-02 12:48 | NUR ---
NURSE CALLED REPORT TO MELO CA AT [facility] IN [place]. NURSE WENT OVER ALL MEDICATIONS AND DIAGNOSIS AT THIS TIME. NURSE WENT OVER REASON FOR SEROQUEL. DEMENTIA WITH BEHAVIORAL DISTURBANCES. PAPER COPY SENT TO [facility] AND FAXED WELL. NURSE GAVE UPDATE ON HOW HE WAS DOING. PT WILL FAXED ARRON AGAIN.SHE VERBALZIED UNDERSTANDING.
--- NOTE | 2021-04-02 12:50 | NUR ---
Rec'd patient this am sitting in hallway in a reclining w/c. He is a/o times one to person. He is med compliant and took his meds crushed and placed in Glucerna. He is very confused, was cooperative this am but is aggressive and aggitated most of the time. He can also be sexually inappropriate at times but displayed none of those behaviors to staff this am. His noon blood glucose level was 198 and he rec'd 2 units of Insulin. He discharged to [facility] at approx 1145 accompanied by this facility personel via a w/c out of the facility with all his inventoried personal belongings.
--- NOTE | 2021-04-02 15:57 | NUR ---
family services worker contacted patient's daughter, Alejandra, to alert at discharge being done today and patient leaving before to return back to [facility]. No other needs were voiced at this time. Alejandra expressed gratitude for services.
--- NOTE | 2021-04-03 15:14 | DS ---
PATIENT:PRIMITIVO DURAN :45 MEDICAL RECORD: [id number] DISCHARGE SUMMARY ADMISSION DATE: 02/24/21 DISCHARGE DATE: 04/02/21 IDENTIFYING DATA: The patient is 75 years old and he was admitted to the hospital on a voluntary basis. CHIEF COMPLAINT: Aggression. HISTORY OF PRESENT ILLNESS: The patient lives in a assisted in [place]. He has been aggressive and delusional. He is severely impaired cognitively and has no recollection of the events that brought him here. He has been aggressive and combative and paranoid and delusional with the staff at the assisted. HOSPITAL COURSE: The patient was admitted to the hospital and evaluated from both a medical, psychological, and social standpoint. He was found to have an advanced vascular dementia and was treated with medications to control his aggressive behaviors and paranoid thoughts. He did not have any significant period of improvement in his behavior until the end of the hospitalization and numerous combinations of different medications were tried to bring his behavior under control. The patient was finally stabilized sufficiently such that he could be returned to the assisted. 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 AXIS II: None AXIS III: Hypertension, diabetes. AXIS IV: Moderate stressors. AXIS V: Global Assessment of Functioning is 40. PLAN: At the time of discharge, the patient was in good behavioral control and had no thoughts of harming himself or others. He was tolerating his medications well, and followup is to be with his primary care assisted physician. TRANSINT:[id number] Voice Confirmation ID: [id number] DOCUMENT ID: [id number] DAVID ROBLES MD at 1514 CC: [id number] DICTATION DATE: 04/02/21 1711 MANAGER ELECTRICAL: 04/03/21 0447 DIS IN 04/02/21 [place] [id number] [place] [id number]
== END 2021-04-02 11:45 | DRG 884 ==
LOC: EDSEX 19:41 → D.PSYCH 19:41
PROVIDERS: Family Medicine; ADMIT Psychiatry & Neurology Psychiatry; ATTEND Psychiatry & Neurology Psychiatry
DX: F01.51 Vascular dementia, unspecified severity, with behavioral disturbance (principal); I12.9 Hypertensive chronic kidney disease with stage 1 through stage 4 chronic kidney disease, or unspecified chronic kidney disease; E11.22 Type 2 diabetes mellitus with diabetic chronic kidney disease; N18.31 Chronic kidney disease, stage 3a; J44.9 Chronic obstructive pulmonary disease, unspecified; I73.9 Peripheral vascular disease, unspecified; M47.894 Other spondylosis, thoracic region; M41.9 Scoliosis, unspecified; F32.9 Major depressive disorder, single episode, unspecified; E55.9 Vitamin D deficiency, unspecified; R26.9 Unspecified abnormalities of gait and mobility; N32.81 Overactive bladder; G89.29 Other chronic pain; R13.12 Dysphagia, oropharyngeal phase